=== PATIENT | female | born 1960 | race Caucasian/White ===

== ENCOUNTER 2017-04-11 03:10 | Emergency (ER) | payer MEDICARE ==
[~2017-04-11] VITALS: Ht 170.2 cm; Wt 59.4 kg
[~2017-04-11 03:10] MED LIST: IBUP-1223 PO; QUET200T4 PO; RISP3TAB24 PO
[2017-04-11 03:11] VITALS: BP 118/80
== END 2017-04-11 04:29 | disposition home or self-care (01) ==
LOC: ED 03:20
DX: G89.11 Acute pain due to trauma (principal); M25.551 Pain in right hip; J44.9 Chronic obstructive pulmonary disease, unspecified; F20.9 Schizophrenia, unspecified; W01.0XXA Fall on same level from slipping, tripping and stumbling without subsequent striking against object, initial encounter; Y93.89 Activity, other specified; Y92.488 Other paved roadways as the place of occurrence of the external cause; Y99.8 Other external cause status
CPT/HCPCS: 99281

== ENCOUNTER 2017-07-21 08:18 | Emergency (ER) | payer MEDICARE ==
[~2017-07-21] VITALS: Ht 167.6 cm; Wt 63.9 kg
[2017-07-21 08:19] VITALS: BP 146/84
== END 2017-07-21 10:24 | disposition left against medical advice (07) ==
LOC: ED 09:52
DX: T76.21XA Adult sexual abuse, suspected, initial encounter (principal); J44.9 Chronic obstructive pulmonary disease, unspecified
CPT/HCPCS: 99281; 99284

== ENCOUNTER 2017-07-25 03:29 | Emergency (ER) | payer MEDICARE ==
[~2017-07-25] VITALS: Ht 175.3 cm; Wt 75.0 kg
[2017-07-25 03:31] VITALS: BP 133/82
== END 2017-07-25 04:32 | disposition home or self-care (01) ==
LOC: ED 04:27
DX: M25.572 Pain in left ankle and joints of left foot (principal); M25.571 Pain in right ankle and joints of right foot; J44.9 Chronic obstructive pulmonary disease, unspecified
CPT/HCPCS: 99283

== ENCOUNTER 2017-10-05 04:41 | Emergency (ER) | payer MEDICARE ==
[~2017-10-05] VITALS: Ht 167.6 cm; Wt 68.9 kg
[2017-10-05 04:43] VITALS: BP 134/83
[2017-10-05] MEDS ORDERED: FLUORESCEIN OPHTHALMIC 1 MG STRIP ONE (05:02)
[2017-10-05] MEDS ORDERED: PROPARACAINE OPHTH 0.5%, 15ML ONE (05:02)
[2017-10-05] MEDS ORDERED: BACITRACIN/POLYMYXIN B OPHTH OINT 3.5GM EACHEYE ONE (05:30)
== END 2017-10-05 06:24 | disposition home or self-care (01) ==
LOC: ED 05:08
DX: H10.023 Other mucopurulent conjunctivitis, bilateral (principal); J44.9 Chronic obstructive pulmonary disease, unspecified
CPT/HCPCS: 99283

== ENCOUNTER 2017-10-09 04:26 | Emergency (ER) | payer MEDICARE ==
[~2017-10-09] VITALS: Ht 167.6 cm; Wt 61.6 kg
[2017-10-09 04:29] VITALS: BP 131/80
[2017-10-09] MEDS ORDERED: PROPARACAINE OPHTH 0.5%, 15ML ONE (05:05)
[2017-10-09] MEDS ORDERED: FLUORESCEIN OPHTHALMIC 1 MG STRIP ONE (05:05)
[2017-10-09] MEDS ORDERED: PROPARACAINE OPHTH 0.5%, 15ML EACHEYE ONE (05:30)
[2017-10-09] MEDS ORDERED: ERYTHROMYCIN OPHTH 0.5%, 1GM EACHEYE ONE (05:30)
== END 2017-10-09 05:50 | disposition home or self-care (01) ==
LOC: ED 05:21
DX: H10.023 Other mucopurulent conjunctivitis, bilateral (principal); F20.9 Schizophrenia, unspecified; F32.9 Major depressive disorder, single episode, unspecified; F41.9 Anxiety disorder, unspecified; J44.9 Chronic obstructive pulmonary disease, unspecified
CPT/HCPCS: 99283

== ENCOUNTER 2017-10-10 01:24 | Emergency (ER) | payer MEDICARE ==
[~2017-10-10] VITALS: Ht 167.6 cm; Wt 60.0 kg
[2017-10-10 01:26] VITALS: BP 137/81
== END 2017-10-10 02:18 | disposition home or self-care (01) ==
LOC: ED 01:37
DX: F39 Unspecified mood [affective] disorder (principal); F20.9 Schizophrenia, unspecified; Z72.89 Other problems related to lifestyle; Z75.0 Medical services not available in home; Z63.8 Other specified problems related to primary support group
CPT/HCPCS: 99284

== ENCOUNTER 2017-10-24 00:39 | Emergency (ER) | payer MEDICARE ==
[~2017-10-24] VITALS: Ht 172.7 cm; Wt 66.3 kg
[2017-10-24] MEDS ORDERED: IBUPROFEN 200 MG TABLET ONE (01:11)
[2017-10-24] MEDS ORDERED: IBUPROFEN 200 MG TABLET PO ONE (01:30)
[2017-10-24 01:47] VITALS: BP 143/88
== END 2017-10-24 01:48 | disposition home or self-care (01) ==
LOC: ED 01:13
DX: M79.621 Pain in right upper arm (principal); W01.0XXA Fall on same level from slipping, tripping and stumbling without subsequent striking against object, initial encounter; Y93.89 Activity, other specified; Y92.488 Other paved roadways as the place of occurrence of the external cause; Y99.8 Other external cause status
CPT/HCPCS: 99283

== ENCOUNTER 2018-03-11 00:03 | Emergency (ER) | payer MEDICARE | END 2018-03-11 00:30 | LOC: ED 00:24 | DX: F15.10 Other stimulant abuse, uncomplicated (principal); R31.9 Hematuria, unspecified; Z72.9 Problem related to lifestyle, unspecified; F32.9 Major depressive disorder, single episode, unspecified; J44.9 Chronic obstructive pulmonary disease, unspecified; F41.1 Generalized anxiety disorder; F20.9 Schizophrenia, unspecified | CPT/HCPCS: 99283 ==

== ENCOUNTER 2018-08-18 04:43 | Emergency (ER) | payer MEDICARE ==
[~2018-08-18] VITALS: Ht 167.6 cm; Wt 68.0 kg
--- NOTE | 2018-08-18 05:26 | NUR ---
PT RESTING ON GURNEY, PROVIDED PT WITH WARM BLANKET, MONITORS IN PLACE, SIDERAILS UP X2, CALL LIGHT WITHIN REACH.
[2018-08-18 06:25] VITALS: BP 93/56
--- NOTE | 2018-08-18 06:26 | NUR ---
PT RESTING ON NISSA BEE, MONITORS IN PLACE, CALL LIGHT WITHIN REACH.
== END 2018-08-18 06:50 | disposition home or self-care (01) ==
LOC: ED 06:38
DX: F10.220 Alcohol dependence with intoxication, uncomplicated (principal); F32.9 Major depressive disorder, single episode, unspecified; J44.9 Chronic obstructive pulmonary disease, unspecified; F41.1 Generalized anxiety disorder
CPT/HCPCS: 99283

== ENCOUNTER 2018-10-15 06:50 | Emergency (ER) | payer MEDICARE ==
[~2018-10-15] VITALS: Ht 167.6 cm; Wt 65.7 kg
[2018-10-15 06:52] VITALS: BP 144/88
--- NOTE | 2018-10-15 06:59 | NUR ---
Pt ambulates to restroom from triage with steady gait and balance. NADN. No obvious defecits observed. emergency room technician showed pt room. Pt aware to go to ED room after restroom.
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
[2018-10-15] MEDS ORDERED: KETOROLAC 30 MG/1 ML ONE (07:26)
[2018-10-15] MEDS ORDERED: KETOROLAC 30 MG/1 ML IM ONE (07:30)
--- NOTE | 2018-10-15 07:38 | NUR ---
Pt refusing medication per EMAR. Pt refusing furter treatment or evaluation by ED. Pt provided d/c paperwork, prescription, and crutches. Pt provided education. Pt left ED and left with all personal belongings, d/c paperwork, and prescriptions.
--- NOTE | 2018-10-15 07:42 | NUR ---
Patient given discharge instructions and they have confirmed that they understand the instructions. Patient ambulatory with steady gait AND BALANCE WITH CRUTCHES.
== END 2018-10-15 07:44 ==
LOC: ED 07:38
DX: G89.11 Acute pain due to trauma (principal); M79.672 Pain in left foot; J44.9 Chronic obstructive pulmonary disease, unspecified; F20.9 Schizophrenia, unspecified; W23.1XXA Caught, crushed, jammed, or pinched between stationary objects, initial encounter; Y93.89 Activity, other specified; Y92.009 Unspecified place in unspecified non-institutional (private) residence as the place of occurrence of the external cause; Y99.8 Other external cause status
CPT/HCPCS: 99282

== ENCOUNTER 2018-10-30 00:27 | Emergency (ER) | payer MEDICARE, MEDICAID ==
[~2018-10-30] VITALS: Ht 167.6 cm; Wt 61.3 kg
[2018-10-30 01:45] VITALS: BP 145/85
--- NOTE | 2018-10-30 02:17 | NUR ---
PROVIDED PT WITH SOCKS, DENIES FURTHER NEEDS
== END 2018-10-30 02:25 | disposition home or self-care (01) ==
LOC: ED 01:09
DX: M79.662 Pain in left lower leg (principal); M79.661 Pain in right lower leg; J44.9 Chronic obstructive pulmonary disease, unspecified; F32.9 Major depressive disorder, single episode, unspecified; F41.1 Generalized anxiety disorder; F20.9 Schizophrenia, unspecified; F17.200 Nicotine dependence, unspecified, uncomplicated
CPT/HCPCS: 36415; 80047; 80307; 99283

== ENCOUNTER 2018-11-01 20:04 | Emergency (ER) | payer MEDICARE, MEDICAID ==
[~2018-11-01] VITALS: Ht 167.6 cm; Wt 67.5 kg
--- NOTE | 2018-11-01 20:26 | NUR ---
assessment made. chart up for MD to see.
--- NOTE | 2018-11-01 20:27 | NUR ---
c/o diffused abdominal pain since 3 pm.
[2018-11-01] MEDS ORDERED: HYDROmorphone 1 MG/ML, 1ML INJ IM ONE (20:30)
[2018-11-01] MEDS ORDERED: SODIUM CHLORIDE 0.9% 1,000ML IVBOLUS ONE (20:30)
[2018-11-01] MEDS ORDERED: ONDANSETRON 2MG/ML, 2ML IVPush ONE (20:30)
[2018-11-01] MEDS ORDERED: MORPHINE SULFATE 4 MG/ML, 1ML IVPush PRN (20:30)
[2018-11-01] MEDS ORDERED: PROMETHAZINE 25 MG/ML, 1ML IM ONE (20:30)
--- NOTE | 2018-11-01 20:41 | NUR ---
patient refused IV placement at this time.
[2018-11-01] MEDS ORDERED: ONDANSETRON 2MG/ML, 2ML ONE (20:47)
[2018-11-01] MEDS ORDERED: MORPHINE SULFATE 4 MG/ML, 1ML ONE (20:48)
--- NOTE | 2018-11-01 20:57 | NUR ---
IV placed. blood drawn and sent to lab. IVF [facility]. medicated for pain and nausea.
[2018-11-01 20:59] LABS: BASOPHILS # (AUTO) 0.02 x10^3/uL (0-0.1); BASOPHILS % (AUTO) 0 % (0-1); EOSINOPHILS # (AUTO) 0.13 x10^3/uL (0-0.4); EOSINOPHILS % (AUTO) 2 % (1-7); LYMPHOCYTES # (AUTO) 1.89 x10^3/uL (1-3.4); LYMPHOCYTES % (AUTO) 26 % (22-44); MD NO; MEAN CORPUSCULAR HEMOGLOBIN 31.7 pg (27.0-34.8); MEAN CORPUSCULAR HGB CONC 33.4 g/dL (32.4-35.8); MEAN CORPUSCULAR VOLUME 95.1 fL (80-100); MEAN PLATELET VOLUME 8.2 fL (7.4-10.4); MONOCYTES # (AUTO) 0.56 x10^3/uL (0.2-0.8); MONOCYTES % (AUTO) 8 % (2-9); NEUTROPHILS # (AUTO) 4.66 x10^3/uL (1.8-6.8); NEUTROPHILS % (AUTO) 64 % (42-75); PLATELET COUNT 235 x10^3/uL (130-400); RED BLOOD COUNT 4.98 x10^6/uL (3.82-5.3); RED CELL DISTRIBUTION WIDTH 15.1 % (9.6-15.2)
[2018-11-01 21:03] LABS: ALANINE AMINOTRANSFERASE 25 U/L (12-78); ALBUMIN 3.8 g/dL (3.4-5.0); ANION GAP 9 mmol/L (5-15); CALCIUM 8.4 mg/dL (8.5-10.1); CHLORIDE 106 mmol/L (98-107); CREATININE 0.71 mg/dL (0.55-1.02)
[2018-11-01 21:06] LABS: ALKALINE PHOSPHATASE 82 U/L (45-117); BILIRUBIN,TOTAL 0.4 mg/dL (0.2-1.0); TOTAL PROTEIN 7.8 g/dL (6.4-8.2)
--- NOTE | 2018-11-01 21:20 | NUR ---
patient states pain is gone.
--- NOTE | 2018-11-01 21:42 | NUR ---
patient to CT scan.
--- NOTE | 2018-11-01 21:47 | NUR ---
back from CT scan. awaiting result.
[2018-11-01] MEDS ORDERED: DICYCLOMINE 10 MG/ML, 2ML IM ONE (22:00)
[2018-11-01] MEDS ORDERED: DICYCLOMINE 10 MG/ML, 2ML ONE (22:02)
--- NOTE | 2018-11-01 22:10 | NUR ---
patient medicated for abdominal cramping.
[2018-11-01 22:30] LABS: MICROSCOPIC AUTO
[2018-11-01 22:31] LABS: CULTURE INDICATED? YES
--- NOTE | 2018-11-01 23:07 | NUR ---
patient became agitated after knowing she will be discharge. yelling to this RN.
--- NOTE | 2018-11-01 23:19 | NUR ---
patient refused to sign discharge papers. IV removed. VS taken and charted. ambulatory. discharge with prescriptions.
[2018-11-01 23:21] VITALS: BP 119/63
[2018-11-02] MEDS ORDERED: OMNIPAQUE 350 MG/ML, 100ML BOTTLE ONE (03:11)
== END 2018-11-01 23:23 | disposition home or self-care (01) ==
LOC: ED 20:40
DX: A08.4 Viral intestinal infection, unspecified (principal); R10.84 Generalized abdominal pain; F17.200 Nicotine dependence, unspecified, uncomplicated; Z72.9 Problem related to lifestyle, unspecified
CPT/HCPCS: 36415; 74177; 80053; 80307; 81001; 83690; 85025; 87086; 96361; 96372; 96374; 96375; 99284; J0500; J2270; J2405; J7030; Q9967